=== PATIENT | female | born 1945 | race African-American/Black ===

== ENCOUNTER 2017-09-16 08:56 | Emergency (ER) | payer MEDICARE ==
[~2017-09-16] VITALS: Ht 170.2 cm; Wt 99.4 kg
[~2017-09-16 08:56] MED LIST: ASPIR 8181 MG PO; DEXILANT60 MG PO; DIOVAN HCT 3201 EACH PO; HYDROXYCHLOROQ200 MG PO; LIPITOR80 MG PO; METFORMIN HCL500 MG PO; METOPROLOL TART50 MG PO; MULTI-VITAMIN1 EACH PO; OMEPRAZOLE PO
[2017-09-16] MEDS ORDERED: BENADRYL ALLERG25 MG PO (09:30)
[2017-09-16] MEDS ORDERED: PEPCID20 MG PO (09:30)
[2017-09-16] MEDS ORDERED: ACYCLOVIR800 MG PO (09:30)
[2017-09-16] MEDS ORDERED: LIDOCAINE-HC28.35 GM TOP (09:30)
[2017-09-16 09:48] VITALS: BP 188/88
== END 2017-09-16 09:46 | disposition home or self-care (01) ==
LOC: FSED 08:56
DX: B02.9 Zoster without complications (principal)
CPT/HCPCS: 99283